=== PATIENT | male | born 1935 | race Caucasian/White ===

== ENCOUNTER 2019-07-18 14:30 | Outpatient (RCR) | payer MEDICARE, SELFPAY ==
--- NOTE | 2019-06-03 09:52 | HP.PTEVAL_ITS ---
Patient's Visit Information SUNG DAVIDSON is a 83 year old M referred to Physical Therapy by Nolberto Garcia MD with a diagnosis of Imbalance from neuropathy. Date of Evaluation: 06/03/19 Physical Therapist: Austin Low DPT, OCS, CSCS - Visit Plan Frequency: 2x /Week Duration: 2 Months Plan: 2x/week for 4-8 for ... Neurocom balance assessment adn positional treatments adn progression to vestibular based balance adn weight shifting ex to HEP when appropriate. - Subjective Findings: Been having dizzyness and LOB. started in December out of nowhere. Started with spinning but that gone and he has to manage that with a maneuver that Dr. Matthews showed him for crystals about every to day. Balance remains poor. Sent to Dr. Garcia last week due to dizzyness or unsteadiness adn slight shaking. Uses cane all the time and has for years but about ready to go to walker whcih he has. 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 H/o B CELIA adn spinal surgery possibly due to radiation. Dizzyness over the summer has made things much worse.. No real pain. Sleeping well but urinates often. Not employed. Retired from [employer]. 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 Basic ADLS are OK. Sits in shower. Steps with railing is tolerable and slow. Was faster before dizzyness. Loves photography and woodworking and does very little due to dizzyness. No regualr exercises. Has silver sneakers but legs didn't hold him up for long so he quit. Had a few falls at the [employer] game walking longer distances. Legs don't hold him - Objective R knee -10 ext and antalgia, Ambulates with SBQC but the 350 feet he does today is alot for him, tires easily. Steps with L only and needs cane and rail. Stadns without AD I but slow, trasnfers I with UE. c/s aROM WFL at 30 ext adn 50 B rotation without pain. LE AROM WFL except above mentioned R knee deficits. HS and quad max tight. reflexes 0/3 patella and achilles. Sensation at great deficit to gross light touch in L distal LE adn somewhat in R foot adn ankle. Coordination to reciprocal toe tap is min deficts, Hip strength is 3, knees 4- in available ROM and ankles 4. - L hallpike, + R hallpike today delayed onset and 10 second duration up torsional nystagmus treated with R Epleya dn instruct on safety adn BPPV. - Balance Scores Functional Gait Assessment Score: 14 % Disability: 53.3400 CATSIB Score (Max score 120 seconds): 71 - Goals Goal 1:: Abolish BPPV dizzyness Goal Time Frame: 4-6 Weeks Goal 2:: Pt score 20/30 on FGA to diminish fall risk Goal Time Frame: 6-8 Weeks Goal 3:: I approp HEp to minimize future problems. Goal Time Frame: 6-8 Weeks Goal 4:: Pt feel 75% more steady and improvement in ADLS Goal Time Frame: 6-8 Weeks - Rehabilitation Potential Physical Therapy Diagnosis: BPPV adn imbalance Rehabilitation Potential: Fair - Anticipated Interventions Patient/Client Instruction: Educate patient on: Condition, Plan of Care For the Purpose of:: To increase tolerance to activity/condition/position, To improve ability of physical actions for home/community/work/leisure, To improve gait and locomotor functions Therapeutic Exercise to Include: Strength training, Balance training, Flexibilty training, Gait and locomotor training Comment: positional For the Purpose of:: To improve muscle performance and motor function, To increase tolerance to activity/condition/position, To improve ability of physical actions for home/community/work/leisure, To improve balance, To improve safety with gait Thank you for the opportunity to evaluate your patient. For Medicare and Medicare HMO plans, please review the plan of care and approve it. It will need to be FAXED BACK to us at [phone] for Medicare purposes. For Medicare only, by signing this I certify the plan of care. Please let me know if there are questions or concerns regarding this plan of care. Physician Signature: Date:
--- NOTE | 2019-06-20 15:06 | HP.PTCOM ---
PT Communication Note 06/20/[address] Nolberto Garcia MD , Thank you for hte referral of Gio to [facility] for balance assessment. It should be noted he is significantly better after going off his diabetes medication and sees his family doctor for that soon. I have enclosed a copy of the results of his balance testing. In summation, he scored low on the vestibular portion of the Sensory Organization Test. He scored low on forward excursion on the Limits of Stability Test. With these results in mind, I plan to see him 2x/week for 4-8 weeks for balance ex and progress to HEP. If you have questions about his assssment, please feel free to call me Thank you once again. Sincerely, Austin Low DPT, OCS, CSCS Contact Information
--- NOTE | 2019-07-18 15:29 | HP.PTDCSUM ---
HP - PT D/C Summary It has been my pleasure to treat SUNG DAVIDSON under orders from Nolberto Garcia MD, for the diagnosis of Imbalance from neuropathy for a total of 9 visit(s). Discharge Date: 07/18/19 Please see the following information for a summary of their discharge status. - Subjective Subjective: Has been good with dizzyness but it returned this morning upon arising. Standing this morning made hi spin. Did Onel to himself adn it settled down after about 40 seconds. Since then is much better. Balance feels better overall as he can take his shirt off without holding on. Been doing some balance things at home until the last week when legs started hurting him again. Spinal stenosis may be the cause of that. Using cane all the time at home. Pt wishes to ex at home and f/u with doctor in 3 weeks adn will ask to come back at that time if needed. - Pain R LE Pain Intensity (Out of 10): 5 - Overall Improvement % Improvement: 75 - Objective Objective/Function: Improving balance significantly. Leg pain holding back more than anything(stenosis?). Dizzyness has not been an issue lately. OVERALL WAS MUCH BETTER BEFORE LEGS STARTED HURTING LAST WEEK AND IMPRIOVING SINCE THEN. - Goals Goal 1:: Abolish BPPV dizzyness Goal Progress: intermittently Goal 2:: Pt score 20/30 on FGA to diminish fall risk Goal Progress: Goal Met Goal 3:: I approp HEp to minimize future problems. Goal Progress: Goal Met Goal 4:: Pt feel 75% more steady and improvement in ADLS Goal Progress: met prior to legs hurting - Plan Plan: D/C, pt to ex at home and see doctor end of month. - D/C Information Discharge Comments: pT DOING BETTER ADN LEGS HOLD HIM BACK MORE THAN ANYTHING. SELF TREATS WITH ONEL AT TIMES. BALANCE IS IMPROVED AND HE WILL CONTINUE WITH HEP If there are questions or concerns regarding this patient's physical therapy, please feel free to call me at [phone]. Thank you for the referral of this patient. Sincerely, Austin Low, DPT, OCS, CSCS
== END 2019-07-18 19:00 | disposition home or self-care (01) ==
LOC: PT 14:30
PROVIDERS: Family Provider Family Medicine; PCP Family Medicine; Referring Provider Psychiatry & Neurology Neurology; Visit Provider Psychiatry & Neurology Neurology
DX: R26.89 Other abnormalities of gait and mobility (principal)
CPT/HCPCS: 97110; 97162; 97530; 97750

== ENCOUNTER 2020-08-02 11:00 | Outpatient (RCR) | payer MEDICARE, SELFPAY | END 2020-08-02 23:59 | LOC: IMMUN 11:00 | PROVIDERS: PCP Family Medicine; Visit Provider Family Medicine | DX: Z23 Encounter for immunization (principal) | CPT/HCPCS: 0011A; 0012A; 91301 ==

== ENCOUNTER 2020-10-20 15:21 | Emergency (ER) | payer MEDICARE, SELFPAY ==
[2020-10-20] VITALS (8 sets, daily range): BP systolic 137–171; BP diastolic 47–74; PULSE 30–62; RESP 16–25; TEMP 36.1–36.8; O2SAT 96–97; BMI 32.6
--- NOTE | 2020-10-20 15:43 | EKG12_ITS ---
Test Reason : DIZZINESS Blood Pressure : / mmHG Vent. Rate : 038 BPM Atrial Rate : 038 BPM P-R Int : 000 ms QRS Dur : 076 ms QT Int : 522 ms P-R-T Axes : 000 008 055 degrees QTc Int : 414 ms Sinus bradycardia Low voltage QRS Abnormal ECG Confirmed by YOUSIF ULLOA MD ([id number]), newspaper editor managing ANAND TAPIA ([id number]) on 10/24/2020 10:45:12 AM Referred By: LOBO Confirmed By:YOUSIF ULLOA MD
--- NOTE | 2020-10-20 15:48 | ED.RN ---
CRASH CART TO ROOM. PT PLACED ON DEFIB PADS
[2020-10-20 15:58] LABS: Absolute Lymphocyte Count 2.93 X10^3/uL (0.83-4.51); Absolute Neutrophil Count 3.1 X10^3/uL (2.0-7.7); Basophil# 0.03 X10^3/uL; Basophil% 0.4 % (0-1); Eosinophil# 0.23 X10^3/uL; Eosinophils% 3.4 % (0-5); Hematocrit 42.5 % (40-54); Hemoglobin 14.1 g/dL (13.0-16.5); Lymphocyte # 2.93 X10^3/ul (4.0); Mean Corp Hgb Conc 33.2 g/dL (32-36); Mean Corpuscular Hgb 31.4 pg (27.0-32.0); Mean Corpuscular Volume 94.7 fL (80-94); Monocyte# 0.55 X10^3/uL; Monocyte% 8.1 % (0-10); NRBC Flagged by Analyzer 0 % (0-5); Neutrophil # 3.06 X10^3/uL (2.7-7.7); Neutrophil % 44.8 % (47-70); Platelet Count 180 K/mm3 (150-450); RBC Distribution Width CV 13.6 % (11.6-14.6); RBC Distribution Width SD 47.5 fl (35.1-43.9); Red Blood Count 4.49 M/mm3 (4.6-6.2); White Blood Count 6.8 K/mm3 (4.4-11.0)
--- NOTE | 2020-10-20 16:05 | EKG12_ITS ---
Test Reason : REPEAT Blood Pressure : / mmHG Vent. Rate : 032 BPM Atrial Rate : 032 BPM P-R Int : 158 ms QRS Dur : 074 ms QT Int : 498 ms P-R-T Axes : 110 010 035 degrees QTc Int : 363 ms Marked sinus bradycardia Low voltage QRS Nonspecific ST abnormality Abnormal ECG Confirmed by ARTEMIO RASMUSSEN, YOUSIF ([id number]), city editor ANAND TAPIA ([id number]) on 10/24/2020 10:45:31 AM Referred By: LOBO Confirmed By:YOUSIF ULLOA MD
[2020-10-20 16:12] LABS: Anion Gap 6 (5-15); BUN 18 mg/dL (7-18); BUN/Creat Ratio 19.1 RATIO (10-20); Calcium,Total 9.1 mg/dL (8.5-10.1); Chloride 107 mmol/L (98-107); Creatinine, Serum 0.94 mg/dL (0.70-1.30); EST Glomerular Filtration Rate 81 mL/min (>60); Est Glom Filt Rate - Afr Amer 98 mL/min (>60); Estimated Creatinine Clearance 60.08 ml/min; Glucose 151 mg/dL (74-106); Potassium 3.9 mmol/L (3.5-5.1); Sodium Level 139 mmol/L (136-145)
[2020-10-20] MEDS: 0.9% Normal Saline 1,000 ML 150 ML IV (16:12)
--- NOTE | 2020-10-20 16:14 | RAD_ITS ---
STUDY: X-RAY CHEST REASON FOR EXAM: Male, 85 years old. cp TECHNIQUE: AP COMPARISON: None. FINDINGS: EKG leads project over the chest. The lungs are clear and expanded. There is no demonstrated pleural abnormality. Normal size heart. Normal mediastinum and barb. Normal visualized pulmonary arteries. There is atherosclerotic calcification of the aortic arch with tortuosity. Normal visualized thoracic spine. Normal visualized ribs, clavicles, and shoulders. There is no demonstrated abnormality of the visualized soft tissue structures of the upper abdomen. RAD/Chest 1 View (Portable) IMPRESSION: Nonacute portable x-ray examination of the chest. Electronically Signed: Mega Oseguera MD ([place]) at 16:32 EDT , Service support ,
--- NOTE | 2020-10-20 16:23 | ED.VIS.GEN ---
History of Present Illness Chief Complaint: Dizziness Informant: Patient Onset: Today Current Severity: Moderate Maximum Severity: Moderate Narrative: Patient presents with dizziness. Patient states he has a history of vertigo along with imbalance problems secondary to diabetic neuropathy. He states he woke up in the middle night to go the bathroom and felt dizzy. He states it did not exactly feel like his normal vertigo. Later this morning he tried an Onel maneuver. He states he got very dizzy for a while with that but overall remains feeling lightheaded and dizzy. He denies chest pain or shortness of breath. Patient states his only medication is occasional low-dose Lasix for some lower extremity swelling. He has diet-controlled diabetes. - Past Medical History (1) Diabetes Status: Chronic (2) Prostate cancer Status: Chronic (3) Neuropathy Status: Chronic (4) Vertigo Status: Chronic Past Medical History - Allergies and Home Meds Allergies/Adverse Reactions: Allergies alprenolol Allergy (Verified 10/20/20 15:26) Rash sulfabenzamide Allergy (Verified 10/20/20 15:26) Hives acetaminophen [From [place]] Adverse Reaction (Verified 10/20/20 15:26) Other hydrocodone [From [place]] Adverse Reaction (Verified 10/20/20 15:26) Other Primary Care Physician: Paul Tse MD [Primary Care Provider] - Surgical History: - - Prostatectomy Lives: Spouse/ Significant Other Smoking Status: Never smoker Review of Systems General: Denies: Chills, Fever Eyes: Denies: Visual changes - bilaterally ENT: Denies: Bilateral ear pain Cardiovascular: Denies: Chest pain Respiratory: Denies: Dyspnea, Cough Gastrointestinal: Denies: Abdominal pain, Nausea, Vomiting, Diarrhea Genitourinary: Denies: Dysuria Musculoskeletal: Denies: Extremity Pain Skin: Denies: Rash Hematologic: Denies: Easy bruising, Easy bleeding Allergy: Denies: Uticaria Physical Exam Vital Signs/Narrative: Vital Signs Temp Pulse Resp BP Pulse Ox 10/20/20 16:11 36 L 18 169/66 H 97 10/20/20 15:44 38 L 25 H 171/62 H 97 10/20/20 15:27 98.2 F 44 L 16 137/67 H 96 Inital Vital Signs reviewed: Yes General: Well nourished, Well developed ENT: Moist mucous membranes Neck: Supple Cardiovascular: Bradycardia Respiratory: No distress, CTA bilaterally Abdomen: Soft, Nontender Extremities: Nontender Skin: Normal color Neurological: Alert, Oriented x3 Psychological: Normal affect Diagnostic/Tx/Re-eval Chest X-Ray - ED: 1 View, Read by ED Physician, Chronic Changes 10/20/20 16:14 Chest 1 View (Portable) [RAD] Stat Laboratory Results 10/20/20 10/20/20 15:43 15:43 WBC 6.8 RBC 4.49 L Hgb 14.1 Hct 42.5 MCV 94.7 H MCH 31.4 MCHC 33.2 RDW Std Deviation 47.5 H RDW Coeff of Stacy 13.6 Plt Count 180 MPV 11.0 Immature Gran % (Auto) 0.300 Neut % (Auto) 44.8 L Lymph % (Auto) 43.0 H Hutchinson % (Auto) 8.1 Eos % (Auto) 3.4 Baso % (Auto) 0.4 Absolute Neuts (auto) 3.1 Absolute Lymphs (auto) 2.93 Nucleated RBC % 0 Sodium 139 Potassium 3.9 Chloride 107 Carbon Dioxide 26.0 Anion Gap 6 BUN 18 Creatinine 0.94 Estim Creat Clear Calc 60.08 Est GFR (MDRD) Af Amer 98 Est GFR (MDRD) Non-Af 81 BUN/Creatinine Ratio 19.1 Glucose 151 H Calcium 9.1 Troponin I < 0.015 - EKG Initial EKG Interpretation: - - Ventricular rate 38. No acute ST change. Marked bradycardia versus third-degree block. Follow-up EKG Interpretation: - - Marked sinus bradycardia at [address] change. I cannot see P waves for every QRS, however when I am able to see P waves the DC interval appears equal. - Medical Decision Making Patient was placed on defib/pacer pads on arrival. Heart rate has been anywhere from 25-60. When watching the heart monitor it appears that he goes into heart block with dissociation of P and QRS complexes. At other times he appears to be a sinus bradycardia. Blood work and chest x-ray are unremarkable. I spoke with our senior international tax manager here who feels patient would be better served at a facility with EP availability. Patient has [facility] and has been accepted at [facility]. ED Disposition - Plan for ED Patient: Disposition: [facility] Diagnosis: Bradycardia Referrals: Paul Tse MD [Primary Care Provider] -
--- NOTE | 2020-10-20 17:24 | ED.RN ---
PER PHYSICANS 2-3 HOUR ETA UNABLE TO OUTSOURCE
== END 2020-10-20 20:25 | disposition short-term general hospital (02) ==
PROVIDERS: Emergency Provider Emergency Medicine; PCP Family Medicine
DX: R00.1 Bradycardia, unspecified (principal); R42 Dizziness and giddiness; Z90.79 Acquired absence of other genital organ(s); Z85.46 Personal history of malignant neoplasm of prostate
CPT/HCPCS: 71045; 80048; 84484; 85025; 93005; 99285; J7030; A4216